=== PATIENT | male | born 1945 | race Caucasian/White ===

== ENCOUNTER 2019-06-29 15:14 | Outpatient (CLI) | payer MEDICARE, OTHER ==
[~2019-06-29 15:14] MED LIST: AMIO200T42 PO; APIX5TAB PO; CAND16TA12 PO; CARV12.52 PO; DIGO125T PO; DULA0.75 SC; FURO-92 PO; FURO-93 PO; INSU200I4 SC; SPIR25TA5 PO
== END 2019-06-29 23:59 | disposition home or self-care (01) ==
LOC: CVU 15:14
PROVIDERS: ATTEND Internal Medicine Cardiovascular Disease
DX: I08.3 Combined rheumatic disorders of mitral, aortic and tricuspid valves (principal); I27.20 Pulmonary hypertension, unspecified; I11.0 Hypertensive heart disease with heart failure; I50.9 Heart failure, unspecified; Z95.810 Presence of automatic (implantable) cardiac defibrillator
CPT/HCPCS: 93306